=== PATIENT | male | born 1945 | race Caucasian/White ===

== ENCOUNTER 2022-04-30 15:04 | Inpatient (IN) | payer MEDICARE, OTHER ==
[~2022-04-30] VITALS: Ht 172.7 cm; Wt 75.1 kg
--- NOTE | 2022-04-30 15:08 | NUR ---
"Plan to admit" per Dr Menezes. ER registration/admitting staff Clarence notified.
[2022-04-30 15:42] LABS: HEMATOCRIT 44.4 % (36.7-47.1); PLATELET COUNT (AUTO) 175 K/uL (152-348)
[2022-04-30] MEDS ORDERED: ACETAMINOPHEN 325 MG TABLET PO PRN (15:45)
[2022-04-30] MEDS ORDERED: REMEDY ESSENTIAL ZINC PASTE 113 GM TP PRN (15:45)
[2022-04-30] MEDS ORDERED: ONDANSETRON 4 MG/2 ML VIAL IV PRN (15:45)
[2022-04-30] MEDS ORDERED: MAGNESIUM HYDROXIDE 30 ML LIQUID UDC PO PRN (15:45)
[2022-04-30 15:58] LABS: BILIRUBIN,DIRECT 0.1 mg/dL (0.0-0.2); BILIRUBIN,TOTAL 0.6 mg/dL (0.2-1.0); POTASSIUM 4.3 mmol/L (3.5-5.1); TOTAL PROTEIN, SERUM 6.5 g/dL (6.4-8.2)
--- NOTE | 2022-04-30 17:00 | NUR ---
Pt. admitted from ER. Report received from ER nurse (Annabel). Pt. is hospitalized due to weakness. Alert and oriented x1. Pt. came from [facility]. No c/o pain. All needs attended and met. PT. is incontinent for both bowel ad bladder. Pt. is on room air. Body check done. safety measure applied. Will keep monitoring the pt.
[2022-04-30 17:14] VITALS: BP 147/70
[2022-04-30] MEDS: IV NS 1000 ML 1,000 ML IV PRN (18:51)
[2022-04-30 20:16] VITALS: BP 118/64
[2022-05-01 04:15] VITALS: BP 111/63
[2022-05-01 06:04] LABS: HEMATOCRIT 42.7 % (36.7-47.1); MEAN CORPUSCULAR HEMOGLOBIN 28.5 uug (23.8-33.4); MEAN CORPUSCULAR VOLUME 89.4 fL (73.0-96.2); PLATELET COUNT (AUTO) 175 K/uL (152-348)
[2022-05-01 06:28] LABS: MAGNESIUM 2.1 mg/dL (1.8-2.4); PHOSPHOROUS 3.2 mg/dL (2.5-4.9); POTASSIUM 4.2 mmol/L (3.5-5.1)
--- NOTE | 2022-05-01 06:53 | NUR ---
Report received from ongoing nurse 1930 Patient was seen in his room, no sign of respiratory distress observed. Patient is awake but very confused. His speech is muffled, he was seen talking to himself. He slept for maybe 2 hours or so. No sign of agitation or aggressivity observed. He was awake for the most part of the night. Patient is now resting in bed. Will continue to monitor patient for safety.
--- NOTE | 2022-05-01 08:30 | NUR ---
RECEIVED PATIENT IN BED AWAKE ALERT TO SELF WITH CONFUSSION AND DISORIENTATION WAS ABLE TO MAKE SIMPLE NEEDS KNOW HAS IVF IN PROGRESS RESTATED A LINE IN HIS RIGHT FOREARM GAUGE 20 NOTED THAT PATIENT HAS FINE TREMORS ON HIS BOTH UPPER EXT.PATIENT IS CONTINENT AND INCONTINENT AT TIMES GOOD [place] CARE DONE MADE COMFORTABLE WILL CONTINUE TO OBSERVE.
--- NOTE | 2022-05-01 09:30 | NUR ---
MIDLINE NURSE HERE AND INSERTED A MIDLINE ORDERED AND TOLERATED WELL.
[2022-05-01] MEDS ORDERED: FOLI1TAB94 PO (10:29)
[2022-05-01] MEDS ORDERED: BISA10SU61 RC (10:29)
[2022-05-01] MEDS ORDERED: MAGN400O6 PO (10:29)
[2022-05-01] MEDS ORDERED: MV-M1TAB18 PO (10:29)
[2022-05-01] MEDS ORDERED: MEMA10TA PO (10:29)
[2022-05-01] MEDS ORDERED: ASPI-1169 (10:29)
[2022-05-01] MEDS ORDERED: TAMS-3 PO (10:29)
[2022-05-01] MEDS ORDERED: ACET-2154 PO (10:29)
[2022-05-01] MEDS ORDERED: MULT-1119 PO (10:29)
[2022-05-01] MEDS ORDERED: NA P133E RC (10:29)
[2022-05-01] MEDS ORDERED: POLY15DR27 EACHEYE (10:29)
[2022-05-01] MEDS ORDERED: ATOR10TA PO (10:29)
[2022-05-01] MEDS ORDERED: RISP2TAB85 PO (10:29)
[2022-05-01 12:00] VITALS: BP 126/68
--- NOTE | 2022-05-01 14:00 | NUR ---
PATIENT SEEN ATTEMPTING TO GET OUT OF BED ASSISTED BACK INTO BED MADE COMFORTABLE.
[2022-05-01 16:00] VITALS: BP 132/68
[2022-05-01] MEDS: IV NS 1000 ML 1,000 ML IV PRN (16:37)
--- NOTE | 2022-05-01 18:29 | NUR ---
PATIENT IS RESTING IN BED WITH IVF ORDERED CALLED DR MULLER AND LEFT HIM A MESSAGE RE HOME MEDICATIONS NEEDED TO BE RECONCILED.
[2022-05-01 20:00] VITALS: BP 138/78
[2022-05-02 04:00] VITALS: BP 135/75
[2022-05-02] MEDS: IV NS 1000 ML 1,000 ML IV PRN (05:08)
[2022-05-02 06:53] LABS: HEMATOCRIT 41.1 % (36.7-47.1); MEAN CORPUSCULAR HEMOGLOBIN 29.1 uug (23.8-33.4); MEAN CORPUSCULAR VOLUME 89.8 fL (73.0-96.2); PLATELET COUNT (AUTO) 168 K/uL (152-348)
[2022-05-02 07:11] LABS: CREATININE 0.8 mg/dL (0.6-1.3); PHOSPHOROUS 3.1 mg/dL (2.5-4.9); POTASSIUM 4.1 mmol/L (3.5-5.1)
--- NOTE | 2022-05-02 07:42 | NUR ---
ASLEEP IN BED EASILY AROUSABLE ON ROUNDS DENIES PAIN OR DISCOMFORTS AT THIS TIME REMAIN ON IVF ORDERED WITH NO S/S OF INFILTERATION ON SITE ASSISTED WITH REPOSITIONING Q2H ALERT BUT IS DISORIENTED MADE COMFORTABLE WILL CONTINUE TO OBSERVE.
[2022-05-02] MEDS ORDERED: MAGNESIUM HYDROXIDE 30 ML LIQUID UDC PO PRN (07:45)
[2022-05-02] MEDS ORDERED: BISACODYL 10 MG SUPP.RECT RC PRN (07:45)
[2022-05-02] MEDS ORDERED: FLEET ENEMA 133 ML BOTTLE RC PRN (07:45)
[2022-05-02] MEDS: risperiDONE 2 MG TABLET PO SCH ×2 (09:12→16:39)
[2022-05-02] MEDS: MEMANTINE HCL 10 MG TABLET PO SCH ×2 (09:12→16:39)
[2022-05-02] MEDS: ASPIRIN 81 MG TAB.CHEW PO SCH (09:12)
[2022-05-02] MEDS: FOLIC ACID 1 MG TABLET PO SCH (09:12)
[2022-05-02] MEDS: REMEDY ESSENTIAL ZINC PASTE 113 GM TP SCH ×2 (09:13→20:53)
[2022-05-02 11:54] VITALS: BP 128/68
[2022-05-02 11:58] VITALS: BP 128/68
[2022-05-02] MEDS: POLYVINYL ALCOHOL OPHT DROPS 15 ML BOTTLE EACHEYE SCH ×2 (12:41→16:40)
[2022-05-02 16:05] VITALS: BP 122/60
--- NOTE | 2022-05-02 18:00 | NUR ---
CONFUSED ALERT TO SELF ONLY EATING DINNER FEEDING SELF REPOSITIONED FOR COMFORT MADE COMFORTABLE WILL OBSERVE.
[2022-05-02 20:40] VITALS: BP 125/92
[2022-05-02] MEDS: TAMSULOSIN HCL 0.4 MG CAP.SR.24H PO SCH (20:52)
[2022-05-02] MEDS: ATORVASTATIN 10 MG TABLET PO SCH (20:53)
[2022-05-03 04:20] VITALS: BP 106/60
--- NOTE | 2022-05-03 06:21 | NUR ---
Patient slept well the whole night, easy to arouse alert to self. In no acute distress. DAMIAN midline intact and patent. Needs assessed and attended to.
[2022-05-03] MEDS: ASPIRIN 81 MG TAB.CHEW PO SCH (08:54)
[2022-05-03] MEDS: MULTIVITAMINS,THERAPEUTIC TABLET PO SCH (08:54)
[2022-05-03] MEDS: FOLIC ACID 1 MG TABLET PO SCH (08:54)
[2022-05-03] MEDS: REMEDY ESSENTIAL ZINC PASTE 113 GM TP SCH ×2 (08:54→20:07)
[2022-05-03] MEDS: MEMANTINE HCL 10 MG TABLET PO SCH ×2 (08:54→16:44)
[2022-05-03] MEDS: risperiDONE 2 MG TABLET PO SCH ×2 (08:54→16:44)
[2022-05-03] MEDS: POLYVINYL ALCOHOL OPHT DROPS 15 ML BOTTLE EACHEYE SCH ×2 (08:55→16:45)
--- NOTE | 2022-05-03 09:57 | NUR ---
PATIENT SEEN BY THE PHYSICAL THERAPY ABLE TO WALK WITH THE FRONT WHEEL WALKER WITH [employer] AND BTB.
[2022-05-03 11:44] VITALS: BP_SYST 113; BP_SYST 147; BP_DIAS 70
[2022-05-03 16:21] VITALS: BP 121/75
--- NOTE | 2022-05-03 18:00 | NUR ---
D/C PLANNING COVID TEST DONE AND ITS NEGATIVE RESTING IN ROOM DENIES DISCOMFORTS WILL CONTINUE TO OBSERVE.
[2022-05-03 20:00] VITALS: BP 139/71
[2022-05-03] MEDS: ATORVASTATIN 10 MG TABLET PO SCH (20:07)
[2022-05-03] MEDS: TAMSULOSIN HCL 0.4 MG CAP.SR.24H PO SCH (20:07)
[2022-05-04 04:00] VITALS: BP 113/59
[2022-05-04 06:57] LABS: HEMATOCRIT 41.4 % (36.7-47.1); MEAN CORPUSCULAR HEMOGLOBIN 28.8 uug (23.8-33.4); MEAN CORPUSCULAR VOLUME 89.3 fL (73.0-96.2); PLATELET COUNT (AUTO) 168 K/uL (152-348)
--- NOTE | 2022-05-04 07:44 | NUR ---
RECEIVED IN BED AWAKE ALERT TO SELF OBEYS COMMANDS WITH CONFUSSION AND DISORIENTATION ALL NEEDS ANTICIPATED AND SATISFIED.REQUIRES MAX ASSIST FOR ALL ADL TURNED AND REPOSITIONED Q2H.D/C PLANNING TODAY AWAITING FOR ORDERS.
[2022-05-04] MEDS: ASPIRIN 81 MG TAB.CHEW PO SCH (08:40)
[2022-05-04] MEDS: risperiDONE 2 MG TABLET PO SCH ×2 (08:40→16:25)
[2022-05-04] MEDS: FOLIC ACID 1 MG TABLET PO SCH (08:40)
[2022-05-04] MEDS: MULTIVITAMINS,THERAPEUTIC TABLET PO SCH (08:40)
[2022-05-04] MEDS: MEMANTINE HCL 10 MG TABLET PO SCH ×2 (08:40→16:25)
[2022-05-04] MEDS: REMEDY ESSENTIAL ZINC PASTE 113 GM TP SCH (08:42)
[2022-05-04] MEDS: POLYVINYL ALCOHOL OPHT DROPS 15 ML BOTTLE EACHEYE SCH ×2 (08:43→16:29)
[2022-05-04 11:27] VITALS: BP 139/66
[2022-05-04 11:47] LABS: CARBON DIOXIDE 31 mmol/L (21-32); CHLORIDE 107 mmol/L (98-107); GLUCOSE 82 mg/dL (74-106); POTASSIUM 3.8 mmol/L (3.5-5.1)
[2022-05-04 11:48] LABS: ALANINE AMINOTRANSFERASE 15 U/L (16-63); ALKALINE PHOSPHATASE 78 U/L (50-136); ASPARTATE AMINOTRANSFERASE 13 U/L (15-37); BILIRUBIN,TOTAL 0.4 mg/dL (0.2-1.0); CREATININE 0.8 mg/dL (0.6-1.3); MAGNESIUM 2.1 mg/dL (1.8-2.4); PHOSPHOROUS 3.4 mg/dL (2.5-4.9); UREA NITROGEN, BLOOD 22 mg/dL (7-18)
[2022-05-04 11:49] LABS: CHOLESTEROL 103 mg/dL (<200); HDL CHOLESTEROL 36 mg/dL (40-60); TRIGLYCERIDES 64 MG/DL (30-150)
[2022-05-04 12:51] LABS: THYROID STIMULATING HORMONE 7.088 mIU/mL (0.358-3.740)
[2022-05-04] MEDS ORDERED: ACET325T53 PO (13:19)
[2022-05-04] MEDS ORDERED: LEVO25TA9 PO (13:19)
[2022-05-04 14:04] LABS: *BILIRUBIN,URIN NEGATIVE (NEGATIVE); *BLOOD, URINE 1+ (NEGATIVE); *CLARITY,URINE CLOUDY (CLEAR); *COLOR,URINE YELLOW (YELLOW); *KETONES,URINE NEGATIVE (NEGATIVE); *UROBILINOGEN,URINE 0.2 E.U./dl (NORMAL); LEUKOCYTE ESTERASE ,URINE 3+ (NEGATIVE); NITRITE, URINE POSITIVE (NEGATIVE); UGLUCOSE NEGATIVE (NEGATIVE)
[2022-05-04 15:08] VITALS: BP 121/49
--- NOTE | 2022-05-04 16:15 | NUR ---
PER DR KNOTT PATIENT IS FOR DISCHARGE TODAY BUT WILL NEED A DOSE OF ROCEPHINE BECAUSE HIS URINE IS POSITIVE FOR UTI
[2022-05-04] MEDS ORDERED: CEPH500C2 PO (16:41)
[2022-05-04] MEDS ORDERED: CEFTRIAXONE 1 G in IV DEXTROSE 5% 50 ML IV ONE (16:45)
--- NOTE | 2022-05-04 16:57 | NUR ---
ROCEPHIN IN PROGRESS AT THIS TIME PATIENT WILL BE DISCHARGED BACK TO [facility] TODAY.
[2022-05-04 17:20] LABS: BACTERIA,URINE MANY /HPF (NONE SEEN); SQUAMOUS EPITHELIAL CELL,UR NONE SEEN /HPF (NONE SEEN); WBC,URINE TNTC /HPF (0-3)
--- NOTE | 2022-05-04 17:30 | NUR ---
CALLED [facility] SPOKE WITH MARY ANN AND REPORT GIVEN FOR CONTINUING CARE PATIENT RECEIVED A STAT ONE TIME ORDER FOR ROCEPHIN BUT WILL CONTINUE WITH KEFLEX FOR 5 DAYS.
--- NOTE | 2022-05-04 18:41 | NUR ---
PATIENT WILL BE PICKED UP ABOUT 2029 TONIGHT ENDORSED
--- NOTE | 2022-05-04 21:10 | NUR ---
Pt AAOx1. Obeys commands. Picked up [facility]. Discharge paperwork given to EMT. Midline on DAMIAN removed. Catheter intact. ID band removed. PT in stable condition. All needs attended. Safety precautions maintained.
[2022-05-05] MEDS ORDERED: LEVOTHYROXINE SODIUM 25 MCG TABLET PO SCH (07:00)
== END 2022-05-04 21:56 | DRG 871 ==
LOC: ER 15:04 → MEDSURG3 16:48
PROVIDERS: ADMIT Internal Medicine; ATTEND Internal Medicine
PROC: 05H533Z Insertion of Infusion Device into Right Subclavian Vein, Percutaneous Approach (ICD-10-PCS; principal; 2022-05-01)
PROC: B546ZZA Ultrasonography of Right Subclavian Vein, Guidance (ICD-10-PCS; 2022-05-01)
DX: A41.9 Sepsis, unspecified organism (principal); E43 Unspecified severe protein-calorie malnutrition; N17.0 Acute kidney failure with tubular necrosis; G92.8 Other toxic encephalopathy; D68.69 Other thrombophilia; N39.0 Urinary tract infection, site not specified; Z20.822 Contact with and (suspected) exposure to COVID-19; E03.9 Hypothyroidism, unspecified; E11.9 Type 2 diabetes mellitus without complications; E78.5 Hyperlipidemia, unspecified; E88.09 Other disorders of plasma-protein metabolism, not elsewhere classified; F20.9 Schizophrenia, unspecified; J44.9 Chronic obstructive pulmonary disease, unspecified; F03.90 Unspecified dementia, unspecified severity, without behavioral disturbance, psychotic disturbance, mood disturbance, and anxiety; I50.9 Heart failure, unspecified; I11.0 Hypertensive heart disease with heart failure; R33.8 Other retention of urine; N40.1 Benign prostatic hyperplasia with lower urinary tract symptoms; Z68.25 Body mass index [BMI] 25.0-25.9, adult; B96.20 Unspecified Escherichia coli [E. coli] as the cause of diseases classified elsewhere
CPT/HCPCS: 36415; 71045; 83735; 84100; 84443; 85025; 93005; A4663; G0378; J0696; J7040